=== PATIENT | male | born 1980 ===

== ENCOUNTER 2017-01-03 09:29 | Outpatient (CLI) | payer OTHER ==
[~2017-01-03 09:29] MED LIST: ACAMPROSATE CA333 MG PO; ALBUTEROL SULF8.5 GM INH; ALBUTEROL2.5 MG/3 M INH; ASMANEX220 MC1 INH; CLONIDINE0.1 MG PO; CYMBALTA60 MG ORAL; GABAPENTIN300 MG ORAL; LAMICTAL100 MG ORAL; METOPROLOL TART25 MG ORAL; NALTREXONE HCL50 MG PO; NEURONTIN600 MG ORAL; PREDNISONE20 MG ORAL; SAPHRIS5 MG SL; SERTRALINE HCL25 MG ORAL; TRAZODONE HCL50 MG ORAL; ZYPREXA5 MG ORAL
== END 2017-01-03 11:29 | disposition home or self-care (01) ==
LOC: ECT 09:29
DX: F31.4 Bipolar disorder, current episode depressed, severe, without psychotic features (principal); F15.10 Other stimulant abuse, uncomplicated; F10.20 Alcohol dependence, uncomplicated; K21.9 Gastro-esophageal reflux disease without esophagitis; Z88.8 Allergy status to other drugs, medicaments and biological substances; Z91.5 Personal history of self-harm

== ENCOUNTER 2017-01-09 04:41 | Outpatient (RCR) | payer OTHER | END 2017-01-17 | disposition home or self-care (01) | LOC: ECT 04:41 | DX: Z53.9 Procedure and treatment not carried out, unspecified reason (principal) ==